=== PATIENT | female | born 1985 | race Caucasian/White ===

== ENCOUNTER 2022-04-11 18:46 | Emergency (ER) | payer OTHER ==
[~2022-04-11] VITALS: Ht 167.6 cm; Wt 57.6 kg
[2022-04-11 19:44] VITALS: BP_SYST 124
[2022-04-11 19:51] VITALS: BP_SYST 124
--- NOTE | 2022-04-11 19:51 | NUR ---
Patient triaged and placed in room. VSS and patient appears in no acute distress at this time. MD Metcalf notified of need for MSE. Report given to GASTON Johnson.
--- NOTE | 2022-04-11 22:23 | NUR ---
PT LEFT WITHOUT BEING SEEN BY MD AT [id number].
== END 2022-04-11 21:30 | disposition left against medical advice (07) ==
LOC: SED 18:46
DX: M54.50 Low back pain, unspecified (principal); Z53.21 Procedure and treatment not carried out due to patient leaving prior to being seen by health care provider